=== PATIENT | male | born 1955 | race Caucasian/White ===

== ENCOUNTER 2025-02-25 11:54 | Emergency (ER) | payer OTHER, MEDICAID ==
[~2025-02-25] VITALS: Ht 175.3 cm; Wt 97.2 kg
[2025-02-25] MEDS: TETRACAINE HCL 0.5% OPTH(EYE) SOLN 4ML LEFTEYE ONE (12:39)
[2025-02-25] MEDS ORDERED: KETO0.5S31 LEFTEYE (12:52)
[2025-02-25] MEDS ORDERED: CIPR0.3S19 OP (12:52)
--- NOTE | 2025-02-25 12:54 | ED.PDOC ---
Eye-HPI HPI Comments 69 year old male presents to the ED with a chief complaint of foreign body onset 4 days. Patient states he was grinding metal, was wearing protective eyeglasses, felt a piece of metal go inside LT eye. Patient states it has happened in the past, usually resolves in a day or two. For the past 4 days patient has been experiencing foreign body sensation, redness and pain of LT eye. No other symptoms or modifying factors present at this time. Chief Complaint: Eye Problem Time Seen by MD: 12:30 Reviewed Notes: Medications, Allergies Allergies: Coded Allergies: NO KNOWN ALLERGIES (Unverified , 02/25/25) Information Source: Patient Mode of Arrival: Ambulatory Timing: Days Duration: Since onset Prehospital treatment: None Quality: Pain, Red, FB sensation Eye Location: Left Conjunctiva: Injection Mouth: Normal ENT Ear Exam: Normal Nose: Normal Sinuses: Normal Oropharynx: Normal Past Medical History PAST MEDICAL HISTORY: Denies Surgical History: Denies all surgeries Family History Family History: Reviewed,noncontributory to illness, No family hx of Cancer, No family hx of DM, No family hx of Heart diamond, No family hx of HTN, No family hx ofKidney diamond, No family hx of Liver diamond, No family hx of Lung diamond, No family hx of Stroke Social History Smoker: Non-Smoker Alcohol: Denies ETOH Use Drugs: Denies Drug Use Lives In: Home All Other Systems: Reviewed and Negative (as per HPI) Physical Exam General Appearance: Normal HEENT: Pharynx Normal, TMs Normal, Other (rusting at 1 o clock. noticable conjuctival injection, EOMS intact. PERRL) Neck: Full Range of Motion, Non-Tender, Normal, Normal Inspection Respiratory: Chest Non-Tender, Lungs Clear, No Accessory Muscle Use, No R espiratory Distress, Normal Breath Sounds Cardiovascular: No Edema, No JVD, No Murmur, No Gallop, Normal Peripheral Pulses, Regular Rate/Rhythm Breast Exam: Deferred Gastrointestinal: No Organomegaly, Non Tender, No Pulsatile Mass, Normal Bowel Sounds, Soft Genitalia: Deferred Pelvic: Deferred Rectal: Deferred Extremities: No calf tenderness, Normal capillary refill, Normal inspection, Normal range of motion, Non-tender, No pedal edema Musculoskeletal : Apperance: Normal Neurologic: Alert, medical equipment technician II-XII nml as Tested, No Motor Deficits, Normal Affect, Normal Mood, No Sensory Deficits Cerebellar Function: Normal Reflexes: Normal Skin: Dry, Normal Color, Warm Lymphatic: No Adenopathy Was a procedure done? Was a procedure done?: No Foreign Body Removal Foreign body in: Eye Anesthetic: Other (tetracaine) Prep: Prep, Saline, Betadine, Shur-Clens, Irrigation, Manual Scrub Procedure: Identified, Removed Informed consent obtained: Yes Risks/benefits/alt described: Yes X-Ray, Labs, Meds, VS Vital Signs Date Time Temp Pulse Resp B/P (MAP) Pulse Ox O2 Delivery O2 Flow Rate FiO2 02/25/25 11:58 97.2 103 18 144/98 97 97.2 X-Ray, Labs, Meds, VS Comment 69 year old male presents to the ED with a chief complaint of foreign body onset 4 days. Patient arrives alert and oriented, ABC's intact, afebrile, vital signs stable, saturating well in room air Additional MDM Review of External, Non-ED records: External records reviewed. Discussion with independent historian (EMS, family) history obtained from the patient/parents (if applicable) at bedside Chronic conditions affecting care: None Social determinants of health affecting care: None Consideration of admission (observation or admission): I considered escalation of care to admission for this patient, however given the reassuring workup, the patient is safe for outpatient management. On reevaluation, patient had symptomatic improvement. Patient is stable for discharge at this time. External notes reviewed. Test results and diagnostic imaging interpreted. All diagnostic findings, discharge care, education and instructions provided Follow-up with PCP in 2 to 3 days Patient verbalized understanding and agreed to treatment plan Vital signs stable, afebrile, no acute distress noted Patient ambulatory with strong steady gait Advised to return precautions for any new or worsening symptoms, return to ER immediately for re-evaluation Patient is aware that the purpose of this visit was for an acute medical emergency requiring emergent stabilization. Chronic conditions, including malignancies have not been ruled out. Patient is instructed to follow up with PCP as directed and discharge instructions for continued care and workup. If unable to arrange follow-up, patient is to return to the emergency department for reassessment. Patient (parent or legal guardian if applicable) was given verbal and written discharge instructions and acknowledges understanding. Time of 1ST Reevaluation: 13:00 Reevaluation 1ST: Improved Patient Education/Counseling: Diagnosis, Treatment Family Education/Counseling: No Family Present SEPSIS Sepsis Screen Date sepsis recognized/suspect: Feb 25, 2025 Time Sepsis recognized/suspect: 1158 Recent Procedure: No On Antibiotic Therapy: No Respiratory Rate >20: No Heart Rate >90: Yes Temp<36 C (96.8 F) or >38.3 C: No SBP <90 or MAP <65 mmHG: No New Acute Mental Status Change: No Is the patient on CPAP, BIPAP,: No Physician Orders Tetracaine 0.5% Opth Soln (Tetracaine 0. (02/25/25 12:45) Visual Acuity (02/25/25 12:33) Slit Lamp (02/25/25 ) [place] (02/25/25 ) Vital Signs Date Time Temp Pulse Resp B/P (MAP) Pulse Ox O2 Delivery O2 Flow Rate FiO2 02/25/25 11:58 97.2 103 18 144/98 97 97.2 Departure 1 Departure Time of Disposition: 12:54 Impression: Primary Impression: Corneal rust ring of left eye Disposition: 01 HOME / SELF CARE / HOMELESS Condition: Stable Additional Instructions: Discharge Note: Continue on your medications. Do not drive when taking narcotics. Drink plenty of fluids. Follow up with your primary Dr. Take your prescriptions as ordered. If your condition becomes worse call and follow up with your primary Dr. for instructions or return to the ER if needed. Keep wound clean and dry. Have a wound check in 2 days. Thank you for visiting [facility]. Discharged With: Self Critical Care Note Critical Care Time?: No Stability Stability form required: No Heart Score Heart Score: Heart Score Response (Comments) Value History N/A 0 EKG N/A 0 Age N/A 0 Risk Factors N/A 0 Troponin N/A 0 Total 0 I personally scribed for LISETTE GALE NP ([email or web address]) on 02/25/25 at 12:54. Electronically submitted by Maryuri Anderson ([email or web address]). LISETTE GALE NP Feb 25, 2025 12:54
[2025-02-25 13:02] VITALS: BP 132/78; PULSE 78; RESP 16; TEMP 98.7; O2SAT 98
== END 2025-02-25 13:04 | disposition home or self-care (01) ==
LOC: ER 11:54
DX: T15.02XA Foreign body in cornea, left eye, initial encounter (principal); W44.G9XA Other non-organic objects entering into or through a natural orifice, initial encounter; Y93.89 Activity, other specified; Y92.89 Other specified places as the place of occurrence of the external cause; Y99.8 Other external cause status
CPT/HCPCS: 65220